=== PATIENT | female | born 1925 | race Caucasian/White ===

== ENCOUNTER 2016-07-25 16:32 | Inpatient (IN) | payer MEDICARE, BC ==
[2016-07-25] MEDS: SODIUM CHLORIDE 0.9% 1000ML 1,000 ML IV SCH (20:47)
[2016-07-25 21:01] LABS: BASOPHILS % (AUTO) 0 % (0-3); EOSINOPHILS % (AUTO) 1 % (0-9); HEMATOCRIT 30 % (35-47); MEAN CORPUSCULAR HGB CONC 34.9 gm/dl (32.0-36.0); MEAN CORPUSCULAR VOLUME 82 fL (81-99); MONOCYTES % (AUTO) 6.6 % (0-12); NEUTROPHILS % (AUTO) 84.2 % (37-80)
[2016-07-25 21:18] LABS: ALBUMIN 3.2 gm/dl (3.4-5.0); ALT 17 IU/L (14-63); CALCIUM 8.7 mg/dl (8.5-10.1); GLOM FILT RATE 54 mL/min (>60); POTASSIUM 4.2 mMol/L (3.5-5.1); SODIUM 140 mMol/L (136-145)
[2016-07-25] MEDS ORDERED: ONDANSETRON HCL 4 MG/2 ML SOL IV PRN (21:21)
[2016-07-25] MEDS: ACETAMINOPHEN 500 MG 500 MG TAB PO PRN (21:47)
[2016-07-26] MEDS: SODIUM CHLORIDE 0.9% 1000ML 1,000 ML IV SCH ×2 (05:40→14:48)
[2016-07-26] MEDS: ACETAMINOPHEN 500 MG 500 MG TAB PO PRN ×3 (05:42→20:49)
[2016-07-26] MEDS: SERTRALINE HYDROCHLORIDE 50 MG TAB PO SCH (09:31)
[2016-07-26] MEDS: OMEGA PO SCH (20:51)
[2016-07-26] MEDS: FISH OIL PO SCH (20:51)
[2016-07-26] MEDS: [UNRECOGNIZED DRUG - OTHER] PO SCH (20:51)
[2016-07-26] MEDS: ASCORBIC ACID/COPPER/LUTEIN/ 1 CAP CAP PO SCH (20:51)
[2016-07-26] MEDS: EPA PO SCH (20:51)
[2016-07-26] MEDS: DHA PO SCH (20:51)
[2016-07-26] MEDS ORDERED: METOPROLOL SUCCINATE 50 MG ER TAB ONE (20:59)
[2016-07-26] MEDS ORDERED: METOPROLOL SUCCINATE 25 MG TAB.ER.24H PO SCH (21:00)
[2016-07-26] MEDS ORDERED: [UNRECOGNIZED DRUG - OTHER] PO SCH (21:00)
[2016-07-26] MEDS: SODIUM CHLORIDE 0.9% FLUSH 10 ML SOL IV SCH (21:52)
[2016-07-27 07:25] LABS: CALCIUM 8.6 mg/dl (8.5-10.1); POTASSIUM 3.8 mMol/L (3.5-5.1)
[2016-07-27 07:31] LABS: BASOPHILS % (AUTO) 0 % (0-3); EOSINOPHILS % (AUTO) 1 % (0-9); HEMATOCRIT 27 % (35-47); MEAN CORPUSCULAR HGB CONC 35.8 gm/dl (32.0-36.0); MEAN CORPUSCULAR VOLUME 83 fL (81-99); MONOCYTES % (AUTO) 7.1 % (0-12); NEUTROPHILS % (AUTO) 80.5 % (37-80)
[2016-07-27] MEDS: ACETAMINOPHEN 500 MG 500 MG TAB PO PRN ×2 (07:52→21:32)
[2016-07-27] MEDS: SODIUM CHLORIDE 0.9% FLUSH 10 ML SOL IV SCH ×3 (07:52→21:32)
[2016-07-27] MEDS ORDERED: CHOLECALCIFEROL PO SCH (09:00)
[2016-07-27] MEDS: SERTRALINE HYDROCHLORIDE 50 MG TAB PO SCH (09:38)
[2016-07-27] MEDS: ASPIRIN 325 MG TAB PO SCH (09:40)
[2016-07-27] MEDS: ASCORBIC ACID/COPPER/LUTEIN/ 1 CAP CAP PO SCH ×2 (09:40→21:12)
[2016-07-27] MEDS: CHOLECALCIFEROL 1,000 IU TAB PO SCH (09:41)
[2016-07-27] MEDS: GLIPIZIDE 2.5 MG TER PO SCH (09:41)
[2016-07-27] MEDS: MULTIVITAMIN2 1 EA TAB PO SCH (09:41)
[2016-07-27] MEDS: METOPROLOL SUCCINATE 50 MG TER PO SCH (09:42)
[2016-07-27 14:02] VITALS: RESP 18
[2016-07-27] MEDS: DHA PO SCH (21:12)
[2016-07-27] MEDS: [UNRECOGNIZED DRUG - OTHER] PO SCH (21:12)
[2016-07-27] MEDS: OMEGA PO SCH (21:12)
[2016-07-27] MEDS: FISH OIL PO SCH (21:12)
[2016-07-27] MEDS: EPA PO SCH (21:12)
[2016-07-28] MEDS: ACETAMINOPHEN 500 MG 500 MG TAB PO PRN (06:35)
[2016-07-28] MEDS: SODIUM CHLORIDE 0.9% FLUSH 10 ML SOL IV SCH (06:35)
[2016-07-28 08:12] VITALS: BP 146/68; PULSE 65; TEMP 98.4; O2SAT 99
[2016-07-28] MEDS: SERTRALINE HYDROCHLORIDE 50 MG TAB PO SCH (08:21)
[2016-07-28] MEDS: ASPIRIN 325 MG TAB PO SCH (08:21)
[2016-07-28] MEDS: CHOLECALCIFEROL 1,000 IU TAB PO SCH (08:22)
[2016-07-28] MEDS: GLIPIZIDE 2.5 MG TER PO SCH (08:22)
[2016-07-28] MEDS: MULTIVITAMIN2 1 EA TAB PO SCH (08:22)
[2016-07-28] MEDS: METOPROLOL SUCCINATE 50 MG TER PO SCH (08:24)
[2016-07-28] MEDS: ASCORBIC ACID/COPPER/LUTEIN/ 1 CAP CAP PO SCH (08:25)
== END 2016-07-28 11:15 | DRG 563 ==
LOC: ED 16:32 → ACUTE CARE 19:48 → UNDOADMOB 19:48 → ACUTE CARE 20:10 → OBSVTOIN 07-27 14:55
PROVIDERS: ADMIT Family Medicine; ATTEND Family Medicine
DX: S52.031A Displaced fracture of olecranon process with intraarticular extension of right ulna, initial encounter for closed fracture (principal); E86.0 Dehydration; E11.9 Type 2 diabetes mellitus without complications; M25.551 Pain in right hip; W10.9XXA Fall (on) (from) unspecified stairs and steps, initial encounter
CPT/HCPCS: 36415; 70450; 72125; 72170; 73070; 73501; 80048; 80053; 82962; 83036; 84443; 84484; 85018; 85025; 85610; 93005; 93012; 94762; 99218; 99224; 99285; J2405; A6232

== ENCOUNTER 2016-07-31 09:50 | Emergency (ER) | payer MEDICARE, BC ==
[2016-07-31 10:38] LABS: BASOPHILS % (AUTO) 1 % (0-3); EOSINOPHILS % (AUTO) 1 % (0-9); HEMATOCRIT 26 % (35-47); MEAN CORPUSCULAR HGB CONC 34.4 gm/dl (32.0-36.0); MEAN CORPUSCULAR VOLUME 84 fL (81-99); NEUTROPHILS % (AUTO) 84.8 % (37-80)
[2016-07-31 10:52] LABS: CALCIUM 8.9 mg/dl (8.5-10.1); POTASSIUM 3.8 mMol/L (3.5-5.1)
[2016-07-31 15:35] VITALS: TEMP 97.1
[2016-07-31 15:38] VITALS: O2SAT 93
[2016-07-31 15:39] VITALS: BP 106/43; PULSE 65; RESP 16
== END 2016-07-31 13:20 | DRG 605 ==
LOC: ED 09:50
DX: S00.83XA Contusion of other part of head, initial encounter (principal); Z79.82 Long term (current) use of aspirin; W18.11XA Fall from or off toilet without subsequent striking against object, initial encounter; Z98.890 Other specified postprocedural states
CPT/HCPCS: 70450; 71010; 80048; 85025; 85610; 93005; 99284; 99285